=== PATIENT | male | born 2000 | race Caucasian/White ===

== ENCOUNTER 2023-12-08 13:13 | Emergency (ER) | payer OTHER, BC ==
[2023-12-08] MEDS: Bupivacaine 0.5% 30 ML SDV INJECT PRN (13:42)
== END 2023-12-08 15:10 | disposition home or self-care (01) ==
LOC: VM.ED 13:13
DX: S61.313A Laceration without foreign body of left middle finger with damage to nail, initial encounter (principal); Z79.2 Long term (current) use of antibiotics; W23.1XXA Caught, crushed, jammed, or pinched between stationary objects, initial encounter; Y99.0 Civilian activity done for income or pay
CPT/HCPCS: 12002; 73140-F2; 99283; J0665